=== PATIENT | female | born 1955 | race Caucasian/White ===

== ENCOUNTER 2024-01-01 07:00 | Day surgery (SDC) | payer OTHER ==
[2023-12-31 12:06] LABS: Absolute Basophils 0.1 K/uL (0-0.5); Absolute Eosinophils 0.1 K/uL (0-0.5); Absolute Monocytes 1.3 K/uL (0.1-1.3); Basophils % 0.9 % (0-1.3); Eosinophils % 0.7 % (0-4.4); Hematocrit 37.9 % (36.0-45.0); Hemoglobin 12.7 g/dL (12.0-15.0); Lymphocytes % 17.4 % (15.3-44.8); MCH 30.5 pg (27.0-35.0); MCHC 33.5 g/dL (32.0-36.0); MCV 91.1 fL (80-100); MPV 6.7 fL (7.6-11.3); Monocytes % 11.4 % (3.3-12.3); Neutrophils % 69.6 % (41.7-73.7); Platelets 618 thou/uL (152-406); RBC Red Blood Cell Count 4.16 M/uL (3.86-4.86); Red Cell Distribution Width 13.4 % (12.1-15.2)
[2023-12-31 12:21] LABS: Anion Gap 12.8 mEq/L (5.0-15.0); Potassium 3.8 mEq/L (3.5-5.1)
--- NOTE | 2023-12-31 12:54 | RAD REPORT ---
EXAMINATION: ONE VIEW CHEST XR CLINICAL INDICATION: pre-op TECHNIQUE: Frontal chest projection is submitted. Examination is limited by patient positioning and t echnique. COMPARISON: No prior exam. FINDINGS: The lungs are well inflated and clear. The heart is upper limit of normal in size. No displaced fract ures identified. IMPRESSION: No acute intrathoracic abnormalities.
[2024-01-01] MEDS: Ringers Lactate 1,000 ML IV ONE (07:40)
[2024-01-01] MEDS ORDERED: NS 0.9% VIAL 20 ML ONE (08:16)
[2024-01-01] MEDS ORDERED: LIDOCAINE 1% 20 ML MDV ONE (08:16)
[2024-01-01] MEDS ORDERED: FENTANYL CITR 100 MCG/2 ML ONE (08:36)
[2024-01-01] MEDS ORDERED: MIDAZOLAM HCL 2 MG/2 ML INJ ONE (08:36)
[2024-01-01] MEDS ORDERED: LIDOCAINE 2% MPF 5 ML VIAL ONE (08:36)
[2024-01-01] MEDS ORDERED: ONDANSETRON 4 MG/2 ML VIAL ONE (08:36)
[2024-01-01] MEDS ORDERED: propofoL 200 MG/20 ML VIAL IV ONE (08:36)
[2024-01-01] MEDS: CEFAZOLIN SODIUM 2 GM/VIAL ONE (08:46)
[2024-01-01] MEDS ORDERED: EPHEDRINE SULF 50 MG/ML VIAL ONE (09:05)
[2024-01-01] MEDS: HEPARIN 5000 UNIT/ML 1 ML VIAL ONE (09:20)
--- NOTE | 2024-01-01 09:53 | P.OP ---
Date of Service: 01/01/24 Preop diagnosis: Anal cancer Postop diagnosis: Same Procedure performed: Placement of right IJ Port-A-Cath device, utilization of ultrasound and fluoroscopy Surgeon: Isidro Gonzales MD [employer] Worker: None Estimated blood loss: Minimal Specimen: None Findings: Normal anatomy Anesthesia: General Complications: None Drains: None Fluids and blood products: None applicable Disposition: Recovery room Operative note: Patient brought to the OR and placed in supine position. General anesthesia began. Patient prepped and draped in usual sterile fashion. Lidocaine 1% very locally. Ultrasound device utilized to isolate the right internal jugular vein. 18-gauge needle used to access the right IJ vein. Guidewire passed and position confirmed with fluoroscopy. 3 cm counterincision made on the right anterior chest. A pocket created. Bleeding controlled cautery. Tunneling device used to tunnel the catheter between the 2 wounds. Seldinger technique used. Tip of the catheter placed at the SVC right atrial junction. Catheter cut to appropriate size and attached to the Port-A-Cath device. Port-A-Cath device attached to subcutaneous tissue with 3-0 Vicryl. The Port-A-Cath flushed with heparin and packed with heparin with good blood flow. 3-0 chromic used to approximate subcutaneous tissue and close skin. Sterile dressing applied. Patient awakened and taken to recovery room in good general condition. Chest x-ray has been ordered. CC: Dr. Muñoz's office
[2024-01-01] MEDS ORDERED: HYDROCODONE/APAP 7.5/325 MG TAB PO PRN (09:54)
--- NOTE | 2024-01-01 10:24 | RAD REPORT ---
EXAM: Fluoroscopy use, Fluoroscopy <1 Hour HISTORY: PORT A CATH PLACEMENT COMPARISON: None FINDINGS: Multiple images were sent to PACS, during a fluoroscopically guided procedure. No radiologi st was involved in protocoling or performance of the study, and no radiologist was present for the duration of the procedure. No interpretation of the saved images will be provided. Total fluoroscopy time: 0.3 minutes. IMPRESSION: Documentation of fluoroscopy use as above.
--- NOTE | 2024-01-01 10:27 | RAD REPORT ---
EXAMINATION: ONE VIEW CHEST XR CLINICAL INDICATION: Status post Port-A-Cath placement TECHNIQUE: Frontal chest projection is submitted. Examination is limited by patient positioning and t echnique. COMPARISON: 12/31/2023 FINDINGS: Right-sided venous catheters tip in SVC. No postprocedural pneumothorax. Mild interstitial pulmonary edema suspected. The heart is upper limit of normal in size. No displaced fractures identified. IMPRESSION: No postprocedure pneumothorax.
[2024-01-01 11:17] VITALS: BP 111/66; O2SAT 96
[2024-01-01 11:29] VITALS: TEMP 98.5
--- NOTE | 2024-01-05 13:10 | EKG ---
Test Date: 2023-12-31 Test Time: 11:41:19 Complaint Inspector: WILVER MEASUREMENT RESULTS: Intervals: Rate: 93 SC: 152 QRSD: 120 QT: 392 QTc: 487 [place]: P: 84 SC: 152 QRS: 54 T: 87 INTERPRETIVE STATEMENTS: Normal sinus rhythm Biatrial enlargement Incomplete left bundle branch block Abnormal ECG Compared to ECG 11/05/2013 23:02:36 Atrial abnormality now present Electronically Signed On 01-05-24 12:56:27 CDT by Horacio Minor
== END 2024-01-01 11:18 | disposition home or self-care (01) ==
LOC: OR 07:00
PROVIDERS: ATTEND Surgery
PROC: 0JH60WZ Insertion of Totally Implantable Vascular Access Device into Chest Subcutaneous Tissue and Fascia, Open Approach (ICD-10-PCS; principal; 2024-01-01 08:45)
DX: C21.0 Malignant neoplasm of anus, unspecified (principal)
CPT/HCPCS: 93005; 85025; 80048; 36415; 84295; 71045 ×2; 36561; J1644 ×2; A4216; J2704; J2001 ×2; J2250; J3010; J2405; J7120; C1788; 76000

== ENCOUNTER 2024-02-15 14:22 | Emergency (ER) | payer OTHER ==
[2024-02-15] MEDS ORDERED: NA CHLORIDE 0.9% 2,000 ML ONE (14:45)
[2024-02-15] MEDS ORDERED: ETOMIDATE 20 MG/10 ML VIAL IV ONE (14:55)
[2024-02-15] MEDS ORDERED: KETAMINE HCL IN 0.9 % NACL 50 MG/5 ML SYRINGE IV ONE (15:08)
[2024-02-15] MEDS ORDERED: dilTIAZem HCL 25 MG/5 ML VIAL IV ONE ×2 (15:09→15:18)
[2024-02-15] MEDS ORDERED: NA CHLORIDE 0.9% 100 ML ONE (15:27)
[2024-02-15] MEDS ORDERED: AMIODARONE HCL 150 MG/3 ML INJ IV ONE (15:27)
[2024-02-15] MEDS ORDERED: AMIODARONE IN DEXTROSE,ISO-OSM 0 MG/0 ML BAG IV ONE (15:27)
[2024-02-15] MEDS ORDERED: DILTIAZEM INJ 125 MG/25 ML 125 MG in NA CHLORIDE 0.9% 100 ML IV SCH (15:30)
[2024-02-15 16:11] LABS: PT Prothrombin Time 17.6 SECONDS (9.4-12.5); Protime INR 1.59
[2024-02-15 16:14] LABS: Absolute Lymphocytes (CBC) 0.1 K/uL (0.7-4.9); Absolute Neutrophil 2.4 K/uL (1.8-8.0); Basophils % 0.6 % (0-1.3); Eosinophils % 1.2 % (0-4.4); Hematocrit 26.6 % (36.0-45.0); MCH 31.7 pg (27.0-35.0); MCHC 33.8 g/dL (32.0-36.0); MCV 93.9 fL (80-100); MPV 8.5 fL (7.6-11.3); Monocytes % 0.7 % (3.3-12.3); Neutrophils % 95.5 % (41.7-73.7); Nucleated Red Blood Cells % 0.7 % (0-0); Platelets 90 thou/uL (152-406); RBC Red Blood Cell Count 2.83 M/uL (3.86-4.86); Red Cell Distribution Width 16.2 % (12.1-15.2)
[2024-02-15 16:28] LABS: Anion Gap 17.4 mEq/L (5.0-15.0); Potassium 3.4 mEq/L (3.5-5.1); Troponin High Sensitivity 22.7 pg/mL (<58.9)
[2024-02-15] MEDS ORDERED: ASPIRIN 81 MG CHEWABLE TABLET ONE (16:30)
[2024-02-15] MEDS ORDERED: CEFTRIAXONE 1000 MG/VIAL ONE (16:30)
[2024-02-15] MEDS ORDERED: NA CHLORIDE 0.9% 500 ML ONE (16:30)
[2024-02-15 16:31] LABS: SARS-CoV-2 Antigen CONTROL BLUE LINE VIS/BG OK; SARS-CoV-2 Antigen Rapid Res Negative (Negative)
--- NOTE | 2024-02-15 16:51 | RAD REPORT ---
EXAMINATION: ONE VIEW CHEST XR CLINICAL INDICATION: Female, 68 years old.,DYSPNEA TECHNIQUE: Frontal chest projection is submitted. Examination is limited by patient positioning and t echnique. COMPARISON: 01/01/2024 FINDINGS: The lungs are well inflated and clear. Right chest wall Port-A-Cath unchanged in position. No pneumot horax or sizable effusion. The heart is normal in size. Mediastinal contours are unremarkable. IMPRESSION: No acute intrathoracic abnormalities.
[2024-02-15] MEDS ORDERED: POTASSIUM CL SA 10 MEQ TAB PO ONE (16:56)
[2024-02-15] MEDS ORDERED: KCL 20 MEQ/100 mL IVPB 100 ML IV ONE (16:56)
[2024-02-15] MEDS ORDERED: NA CHLORIDE 0.9% 1,000 ML ONE (16:56)
[2024-02-15] MEDS ORDERED: AMIODARONE HCL 900 MG in Dextrose 5%-Water 482 ML IV SCH (17:00)
[2024-02-15 17:25] LABS: Band Neutrophils 37 % (0-1); Differential Total Cells Count 100; Segmented Neutrophils 43 % (40-80)
[2024-02-15 17:26] LABS: Atypical Lymphocytes 1 %; Lymphocytes 6 % (15-42); Metamyelocytes 3 % (0-0); Monocytes 10 % (0-10)
[2024-02-15 17:30] LABS: Blood Morphology Comment NOTED (NOT SEEN); Dohle Bodies PRESENT; Platelet Estimate DECR; Platelets Clumped FEW; Polychromasia SLIGHT; Toxic Granulation PRESENT
--- NOTE | 2024-02-15 18:04 | EDPHYS ---
Physician Documentation [facility] Name: Dary Woodard Age: 68 yrs Sex: Female : 1955 Arrival Date: 02/15/2024 Time: 14:22 Bed 14 Private MD: ED Physician Angel Marquez HPI: 02/14 16:16 This 68 yrs old Female presents to ER via EMS with complaints of Shortness Of ec2 Breath. 16:16 Patient arrives today for reported shortness of breath as well as concern for A-fib. ec2 EMS reports that the patient was noted to have heart rates in the 150s to 170s with hypotensive blood pressures. Patient with history of colorectal cancer, receiving chemotherapy, has a port in the right chest in place. Patient reports some shortness of breath, reports she been having cough and congestion along with nausea, vomiting, diarrhea ongoing for the past several days.. Historical: - Allergies: 14:22 No Known Allergies; kc6 - PMHx: 14:22 Hypertensive disorder; Gastroesophageal reflux disease; colorectal cancer; kc6 - Immunization history:: Adult Immunizations up to date. - Infectious Disease History:: Denies. - Social history:: Smoking status: Patient reports the use of cigarette tobacco products, smokes one pack cigarettes per day. ROS: 16:16 Constitutional: as per hpi ec2 Exam: 16:16 Constitutional: GEN: NAD Head: atraumatic Eyes: EOMI Ears: External ears are ec2 normal. CV: Tachycardia with irregular rhythm. LUNGS: Scattered wheezes noted throughout all lung olivares. ABD: non-distended SKIN: no evidence of rashes MSK: no evidence of trauma Vital Signs: 14:22 Weight 78.93 kg (M); Height 5 ft. 4 in. (R); kc6 14:42 BP 82 / 54; Pulse 147; Resp 21 S; Pulse Ox 91% on 2 lpm NC; kc6 14:55 BP 81 / 55; Pulse 137; Resp 22 S; Pulse Ox 100% on Non-rebreather mask; iw 14:58 BP 89 / 55; Pulse 140; iw 15:00 BP 91 / 80; Pulse 147; iw 15:14 BP 118 / 69; Pulse 135; Resp 28; iw 15:20 BP 81 / 58; Pulse 109; Resp 22 S; Pulse Ox 98% on 3 lpm NC; kc6 15:25 BP 76 / 66; Pulse 111; kc6 15:30 BP 79 / 68; Pulse 117; kc6 15:35 BP 87 / 60; Pulse 117; kc6 15:40 BP 86 / 70; Pulse 120; Resp 23 S; Pulse Ox 97% on 3 lpm NC; kc6 15:42 BP 89 / 71; Pulse 111; kc6 16:04 BP 98 / 66; Pulse 106; Resp 19 S; Temp 98.5(O); Pulse Ox 100% on Non-rebreather mask; kc6 16:16 BP 89 / 63; Pulse 118; Resp 22 S; Pulse Ox 96% on 3 lpm NC; kc6 16:30 BP 97 / 65; Pulse 120; Resp 25 S; Pulse Ox 94% on 3 lpm NC; kc6 16:50 BP 91 / 65; Pulse 123; Resp 25 S; Pulse Ox 94% on 3 lpm NC; kc6 17:10 BP 97 / 78; Pulse 112; Resp 22 S; Pulse Ox 95% on 3 lpm NC; kc6 17:30 BP 114 / 99; Pulse 113; Resp 25 S; Pulse Ox 97% on 3 lpm NC; kc6 18:00 BP 91 / 63; Pulse 115; Resp 24 S; Pulse Ox 96% on 3 lpm NC; kc6 18:16 BP 101 / 71; Pulse 110; Resp 24 S; Pulse Ox 96% on 3 lpm NC; kc6 18:30 BP 105 / 74; Pulse 109; Resp 21 S; Pulse Ox 95% on 3 lpm NC; kc6 19:05 BP 99 / 65; Pulse 107; Resp 23; Temp 98.5; Pulse Ox 97% on 3 lpm NC; Pain 8/10; bm8 20:41 BP 95 / 57; Pulse 110; Resp 20; Temp 98.5; Pulse Ox 96% on 3 lpm NC; Pain 3/10; bm8 21:20 BP 89 / 67; Pulse 115; Resp 21; Temp 98.5; Pulse Ox 95% on 3 lpm NC; Pain 3/10; bm8 14:22 Body Mass Index 29.87 (78.93 kg, 162.56 cm) kc6 19:05 Pain Scale: Adult bm8 20:41 Pain Scale: Adult bm8 21:20 Pain Scale: Adult bm8 [place] Coma Score: 19:05 Eye Response: spontaneous(4). Motor Response: obeys commands(6). Verbal Response: bm8 oriented(5). Total: 15. 20:41 Eye Response: spontaneous(4). Motor Response: obeys commands(6). Verbal Response: bm8 oriented(5). Total: 15. 21:20 Eye Response: spontaneous(4). Motor Response: obeys commands(6). Verbal Response: bm8 oriented(5). Total: 15. Procedures: 18:29 Cardioversion: (synchronized) for treatment of A fib, with 200 joules X 1. Post ec2 procedure rhythm is unchanged, the patient tolerated the procedure well. MDM: 14:23 Medical Screening Exam initiated ec2 16:16 Data reviewed: vital signs, nurses notes. ED course: Patient arrives today for ec2 shortness of breath. Examination yields an unstable individual with hypotension along with A-fib with RVR with rates in the 140s to 160s. Given the concerning findings I decided to emergently cardiovert the patient given the low blood pressures. I gave the patient etomidate along with a 200 J shock, subsequently patient with slowed rates in the 120s to 140s along with improved blood pressures. After continued monitoring, patient persistent with A-fib with RVR with rates persistence in the 120s to 130s, I given the patient 25 mg of diltiazem as well with some improvement in heart rates to the 100-1 20s. Ultimately patient is an unstable individual requiring multiple forms of cardioversion including electric and chemical. Pending lab work, chest x-ray. Differential includes electrolyte disturbances, arrhythmia, anemia.. 16:40 ED course: Metabolic profile shows significant renal dysfunction with a creatinine of ec2 4.73, electrolyte disturbances with potassium of 3.4. CBC shows anemia with hemoglobin of 9. BNP elevated at 3500. Troponin within normal ranges. Flu negative, COVID-negative.. 16:54 ED course: Patient with recurrence of rates in the 120s to 130s, will give the patient ec2 amiodarone, start the patient on amiodarone drip. Patient with blood pressures in the 90s to low 100s.. 18:59 ED course: Due to ICU capability, will transfer for ICU cares.. ec2 20:38 ED course: I discussed case with route rider who agrees to accept the patient for ec2 transfer.. 12 14:24 Order name: Basic Metabolic Panel; Complete Time: 16:39 ec2 02/14 14:24 Order name: CBC with Diff; Complete Time: 17:36 ec2 02/14 14:24 Order name: NT PRO-BNP; Complete Time: 16:39 ec2 02/14 14:24 Order name: PT-INR; Complete Time: 16:15 ec2 02/14 14:24 Order name: Troponin HS; Complete Time: 16:39 ec2 02/14 14:25 Order name: Blood Culture Adult (2) ec2 02/14 14:25 Order name: Lactate w/ 2H reflex if indic.; Complete Time: 16:28 ec2 02/14 14:33 Order name: Influenza Screen (a \T\ B); Complete Time: 16:39 ec2 02/14 14:33 Order name: SARS RAPID; Complete Time: 16:39 ec2 02/14 17:27 Order name: Manual Differential; Complete Time: 17:36 EDMS 02/14 14:24 Order name: XRAY Chest (1 view); Complete Time: 16:51 ec2 02/14 14:24 Order name: EKG; Complete Time: 14:24 ec2 02/14 14:24 Order name: Cardiac monitoring; Complete Time: 14:43 ec2 02/14 14:24 Order name: EKG - Nurse/Tech; Complete Time: 15:20 ec2 02/14 14:24 Order name: IV Saline Lock; Complete Time: 15:20 ec2 02/14 14:24 Order name: Labs collected and sent; Complete Time: 16:02 ec2 02/14 14:24 Order name: O2 Per Protocol; Complete Time: 14:42 ec2 02/14 14:24 Order name: O2 Sat Monitoring; Complete Time: 14:42 ec2 02/14 14:25 Order name: Accucheck; Complete Time: 16:02 ec2 02/14 14:25 Order name: IV Saline Lock - Large Bore; Complete Time: 14:42 ec2 02/14 14:25 Order name: Vital Signs; Complete Time: 15:20 ec2 02/14 15:56 Order name: EKG - Nurse/Tech; Complete Time: 16:02 ec2 Administered Medications: 14:30 Drug: NS 0.9% IV 1000 ml IV at 1000 ml once; to be given as a bolus over 60 minutes kc Route: IV; Rate: 1000 ml; Site: right antecubital; 15:30 Follow up: Response: No adverse reaction; IV Status: Completed infusion; IV Intake: kc6 1000ml 14:30 Drug: NS 0.9% IV 1000 ml IV at 1 bolus Per protocol; to be given as a bolus over 60 kc6 minutes Route: IV; Rate: 1 bolus; Site: right antecubital; 15:30 Follow up: Response: No adverse reaction; IV Status: Completed infusion; IV Intake: kc6 1000ml 15:00 Drug: Etomidate IVP 20 mg IVP once Route: IVP; Site: right antecubital; [facility] 15:15 Follow up: Response: No adverse reaction; RASS: Light sedation (-2) [facility] 15:14 Drug: Diltiazem IVP 25 mg IVP once; Over 2 Minutes Route: IVP; Site: right antecubital; [facility] 15:25 Follow up: Response: No adverse reaction; Cardiac rhythm is unchanged [facility] 16:48 Drug: Aspirin PO Chewable Tablet 324 mg PO once; 81 mg tablets x 4 Route: PO; kc6 17:48 Follow up: Response: No adverse reaction [facility] 16:48 Drug: NS 0.9% IV 500 ml 500 ml IV at 1 bolus once; to be given as a bolus over 30 kc6 minutes Volume: 500 ml; Route: IV; Rate: 1 bolus; Site: right antecubital; 17:48 Follow up: Response: No adverse reaction; IV Status: Completed infusion; IV Intake: kc6 500ml 16:51 Drug: Rocephin IV 1 grams IV at calculated rate once; Given slow IV push per pharmacy 6 instructions Route: IV; Rate: calculated rate; Site: right antecubital; 17:51 Follow up: Response: No adverse reaction; IV Status: Completed infusion; IV Intake: [id number] 17:12 Drug: Potassium Chloride IV 20 mEq IV at calculated rate once; administer over 1-2 kc6 hours Route: IV; Rate: calculated rate; Site: Port-a-cath; 19:50 Follow up: Response: No adverse reaction; IV Status: Completed infusion; IV Intake: bm8 100ml 17:12 Drug: Potassium Chloride PO 40 mEq PO once Route: PO; kc6 19:08 Follow up: Response: Nausea is increased; Vomiting increased kc6 17:12 Drug: amiodarone IVP 150 mg IVP once Route: IVP; Site: right antecubital; kc6 17:18 Follow up: Response: No adverse reaction kc6 17:27 Drug: amiodarone IVPB 900 mg, D5W IV 500 ml IVPB at 1 mg/min continuous; for 6 hrs, kc6 then change to 0.5 mg/min Route: IVPB; Rate: 1 mg/min; Site: right antecubital; 21:41 Follow up: Response: No adverse reaction; IV Status: Infusion continued upon transfer bm8 18:47 Drug: Magnesium Sulfate IVPB 2 grams IVPB once over 2 hrs Route: IVPB; Infused Over: 2 kc6 hrs; Site: Port-a-cath; 19:50 Follow up: Response: No adverse reaction; IV Status: Completed infusion; IV Intake: bm8 100ml 19:50 Drug: fentaNYL (PF) IVP 25 mcg IVP once Route: IVP; Site: right antecubital; bm8 20:42 Follow up: Response: No adverse reaction bm8 21:20 Drug: Ondansetron IVP 4 mg IVP once; over 2 minutes Route: IVP; Site: right antecubital;bm8 21:41 Follow up: Response: No adverse reaction bm8 Disposition: 18:02 Critical Care:. ec2 Disposition Summary: 02/15/24 19:00 Transfer Ordered Notes: Transfer Location: [facility] ec2 Reason: Higher level of care ec2 Condition: Stable(02/15/24 19:00) ec2 Problem: new(02/15/24 19:00) ec2 Symptoms: have improved(02/15/24 19:00) ec2 Accepting Physician: transferring doc(02/15/24 21:57) bm8 Diagnosis - Afib w/ RVR ec2 - Pancytopenia ec2 - Acute Renal Failure ec2 - Hypokalemia ec2 Forms: - Medication Reconciliation Form ec2 - SBAR form ec2 Critical care time excluding procedures: 18:02 Critical care time: Bedside Care: 70 minutes, Consultation: 5 minutes, Family ec2 Intervention: 10 minutes. Total time: 85 minutes Signatures: Dispatcher [employer] EDMS Tae Farias MD MD sp3 Quiana Carlton, RN RN kc6 Angel Marquez MD MD ec2 Delta Hebert, RN RN bm8 Corrections: (The following items were deleted from the chart) 14:24 14:24 BASIC METABOLIC PANEL+C.LAB.BRZ ordered. EDMS EDMS 14:24 14:24 CBC+H.LAB.BRZ ordered. EDMS EDMS 14:24 14:24 PROBNP+C.LAB.BRZ ordered. EDMS EDMS 14:24 14:24 PROTIME (+INR)+COAG.LAB.BRZ ordered. EDMS EDMS 14:24 14:24 Troponin High Sensitivity+C.LAB.BRZ ordered. EDMS EDMS 18:15 18:03 Telemetry/MedSurg (Inpatient) ec2 ec2 18:15 18:03 ec2 ec2 19:00 18:03 Inpatient Admission ec2 ec2 19:00 18:03 Ziggy Heard ec2 ec2 19:00 18:03 Fair ec2 ec2 19:00 18:03 new ec2 ec2 19:00 18:03 have improved ec2 ec2 19:00 18:03 Standard ec2 ec2 19:00 18:03 Afib w/ RVR ec2 ec2 19:00 18:03 Pancytopenia ec2 ec2 19:00 18:03 Acute Renal Failure ec2 ec2 19:00 18:15 Intensive Care Unit ec2 ec2 19:00 18:15 ec2 ec2 19:07 19:00 transferring doc ec2 ec2 21:57 19:07 transferring doc ec2 bm8
--- NOTE | 2024-02-15 18:04 | ER ---
Nurse's Notes [facility] Name: Dary Woodard Age: 68 yrs Sex: Female : 1955 Arrival Date: 02/15/2024 Time: 14:22 Bed 14 Private MD: Diagnosis: Afib w/ RVR;Pancytopenia;Acute Renal Failure;Hypokalemia Presentation: 02/14 14:22 Chief complaint: EMS states: they were toned out for n/v/d x5 days. pt reports kc6 currently being treated for colorectal cancer. upon EMS arrival pt was hypotensive and in afib RVR. pt denies CP but reports SOB. 14:22 Coronavirus screen: At this time, the client does not indicate any symptoms associated kc6 with coronavirus-19. Ebola Screen: No symptoms or risks identified at this time. Initial Sepsis Screen: Does the patient meet any 2 criteria? RR > 20 per min. Systolic BP < 90 mmHg. Mean Arterial Pressure (MAP) < 65. HR > 90 bpm. Does the patient have a suspected source of infection? No. Patient's initial sepsis screen is negative. Risk Assessment: Do you want to hurt yourself or someone else? Patient reports no desire to harm self or others. Onset of symptoms was February 15, 2024. 14:22 Method Of Arrival: EMS: [facility] 14:22 Acuity: LYDIA 2 [facility] 14:22 Care prior to arrival: Medication(s) given: Normal saline infusion, 500 mL, IV kc6 initiated. 20 GA, in the right antecubital area. Triage Assessment: 14:22 General: Appears distressed, uncomfortable, well groomed, well developed, Behavior is kc6 calm, cooperative, appropriate for age. Pain: Complains of pain in buttocks. EENT: No signs and/or symptoms were reported regarding the EENT system. Neuro: Level of Consciousness is awake, alert, obeys commands, Oriented to person, place, time, situation, Appropriate for age. Cardiovascular: Denies chest pain, Rhythm is atrial fibrillation with rapid ventricular response. Respiratory: Reports shortness of breath at rest on exertion Airway is patent Trachea midline Respiratory effort is even, labored, Respiratory pattern is symmetrical, tachypnea Breath sounds with wheezes bilaterally. Onset: The symptoms/episode began/occurred at an unknown time. the patient has moderate shortness of breath. GI: Abdomen is round non-distended, Reports diarrhea, intolerance of fluids, intolerance of food, nausea, vomiting, Patient currently denies abdominal pain. : No signs and/or symptoms were reported regarding the genitourinary system. Derm: No signs and/or symptoms reported regarding the dermatologic system. Skin is healthy with good turgor, Skin is dry, Skin is pale, Skin temperature is warm. Musculoskeletal: No signs and/or symptoms reported regarding the musculoskeletal system. Circulation, motion, and sensation intact. Capillary refill < 3 seconds, Range of motion: intact in all extremities. Historical: - Allergies: 14:22 No Known Allergies; kc6 - PMHx: 14:22 Hypertensive disorder; Gastroesophageal reflux disease; colorectal cancer; kc6 - Immunization history:: Adult Immunizations up to date. - Infectious Disease History:: Denies. - Social history:: Smoking status: Patient reports the use of cigarette tobacco products, smokes one pack cigarettes per day. Screenin:22 [facility] ED Fall Risk Assessment (Adult) History of falling in the last 3 months, kc6 including since admission No falls in past 3 months (0 pts) Confusion or Disorientation No (0 pts) Intoxicated or Sedated No (0 pts) Impaired Gait No (0 pts) Mobility Assist Device Used No (0 pt) Altered Elimination No (0 pt) Score/Fall Risk Level 0 - 2 = Low Risk Oriented to surroundings, Maintained a safe environment. Abuse screen: Denies threats or abuse. Denies injuries from another. Nutritional screening: No deficits noted. Tuberculosis screening: No symptoms or risk factors identified. Assessment: 14:22 Reassessment: please see triage assessment. [facility] 14:55 Reassessment: set up for synchronized cardioversion, BP 88/51, HR 130's to 140's Afib iw RVR, Dr. Marquez at bedside , crash cart at bedside, suction set up. 15:09 Reassessment: cardiac rhythm unchanged after cardioversion, new orders given, Dr. samson Marquez remains at bedside. 15:22 Reassessment: Patient appears in no apparent distress at this time. No changes from [facility] previously documented assessment. Patient and/or family updated on plan of care and expected duration. Pain level reassessed. Patient is alert, oriented x 3, equal unlabored respirations, skin warm/dry/pink. 16:22 Reassessment: Patient appears in no apparent distress at this time. No changes from kc6 previously documented assessment. Patient and/or family updated on plan of care and expected duration. Pain level reassessed. Patient is alert, oriented x 3, equal unlabored respirations, skin warm/dry/pink. 17:22 Reassessment: Patient appears in no apparent distress at this time. No changes from kc6 previously documented assessment. Patient and/or family updated on plan of care and expected duration. Pain level reassessed. Patient is alert, oriented x 3, equal unlabored respirations, skin warm/dry/pink. 18:22 Reassessment: Patient appears in no apparent distress at this time. No changes from kc6 previously documented assessment. Patient and/or family updated on plan of care and expected duration. Pain level reassessed. Patient is alert, oriented x 3, equal unlabored respirations, skin warm/dry/pink. 19:05 Reassessment: Patient appears in no apparent distress at this time. Patient and/or bm8 family updated on plan of care and expected duration. Pain level reassessed. Patient is alert, oriented x 3, equal unlabored respirations, skin warm/dry/pink. General: Appears in no apparent distress. uncomfortable, Behavior is calm, cooperative, appropriate for age. Pain: Complains of pain in buttocks Pain currently is 8 out of 10 on a pain scale. Neuro: No deficits noted. Level of Consciousness is awake, alert, obeys commands, Oriented to person, place, time, situation, Appropriate for age. 19:05 Cardiovascular: Denies chest pain, Heart tones S1 S2 present Capillary refill < 3 bm8 seconds in bilateral fingers Patient's skin is warm and dry. Rhythm is atrial fibrillation. Respiratory: Airway is patent Respiratory effort is even, unlabored, Respiratory pattern is regular, symmetrical, Breath sounds are clear bilaterally. GI: No signs and/or symptoms were reported involving the gastrointestinal system. : No signs and/or symptoms were reported regarding the genitourinary system. EENT: No signs and/or symptoms were reported regarding the EENT system. Derm: scabbed over coccyx area, several small wounds. Musculoskeletal: No signs and/or symptoms reported regarding the musculoskeletal system. 20:41 Reassessment: Patient appears in no apparent distress at this time. Patient and/or bm8 family updated on plan of care and expected duration. Pain level reassessed. Patient is alert, oriented x 3, equal unlabored respirations, skin warm/dry/pink. pain reduced to 3/10, family at bedside, awaiting transfer Patient states feeling better. 21:06 Reassessment: report given to BRITT Camacho at [facility]. bm8 21:20 Reassessment: Patient appears in no apparent distress at this time. No changes from bm8 previously documented assessment. Patient and/or family updated on plan of care and expected duration. Pain level reassessed. Patient is alert, oriented x 3, equal unlabored respirations, skin warm/dry/pink. Vital Signs: 14:22 Weight 78.93 kg (M); Height 5 ft. 4 in. (R); kc6 14:42 BP 82 / 54; Pulse 147; Resp 21 S; Pulse Ox 91% on 2 lpm NC; kc6 14:55 BP 81 / 55; Pulse 137; Resp 22 S; Pulse Ox 100% on Non-rebreather mask; iw 14:58 BP 89 / 55; Pulse 140; iw 15:00 BP 91 / 80; Pulse 147; iw 15:14 BP 118 / 69; Pulse 135; Resp 28; iw 15:20 BP 81 / 58; Pulse 109; Resp 22 S; Pulse Ox 98% on 3 lpm NC; kc6 15:25 BP 76 / 66; Pulse 111; kc6 15:30 BP 79 / 68; Pulse 117; kc6 15:35 BP 87 / 60; Pulse 117; kc6 15:40 BP 86 / 70; Pulse 120; Resp 23 S; Pulse Ox 97% on 3 lpm NC; kc6 15:42 BP 89 / 71; Pulse 111; kc6 16:04 BP 98 / 66; Pulse 106; Resp 19 S; Temp 98.5(O); Pulse Ox 100% on Non-rebreather mask; kc6 16:16 BP 89 / 63; Pulse 118; Resp 22 S; Pulse Ox 96% on 3 lpm NC; kc6 16:30 BP 97 / 65; Pulse 120; Resp 25 S; Pulse Ox 94% on 3 lpm NC; kc6 16:50 BP 91 / 65; Pulse 123; Resp 25 S; Pulse Ox 94% on 3 lpm NC; kc6 17:10 BP 97 / 78; Pulse 112; Resp 22 S; Pulse Ox 95% on 3 lpm NC; kc6 17:30 BP 114 / 99; Pulse 113; Resp 25 S; Pulse Ox 97% on 3 lpm NC; kc6 18:00 BP 91 / 63; Pulse 115; Resp 24 S; Pulse Ox 96% on 3 lpm NC; kc6 18:16 BP 101 / 71; Pulse 110; Resp 24 S; Pulse Ox 96% on 3 lpm NC; kc6 18:30 BP 105 / 74; Pulse 109; Resp 21 S; Pulse Ox 95% on 3 lpm NC; kc6 19:05 BP 99 / 65; Pulse 107; Resp 23; Temp 98.5; Pulse Ox 97% on 3 lpm NC; Pain 8/10; bm8 20:41 BP 95 / 57; Pulse 110; Resp 20; Temp 98.5; Pulse Ox 96% on 3 lpm NC; Pain 3/10; bm8 21:20 BP 89 / 67; Pulse 115; Resp 21; Temp 98.5; Pulse Ox 95% on 3 lpm NC; Pain 3/10; bm8 14:22 Body Mass Index 29.87 (78.93 kg, 162.56 cm) kc6 19:05 Pain Scale: Adult bm8 20:41 Pain Scale: Adult bm8 21:20 Pain Scale: Adult bm8 Vitals: 19:05 Cardiac Rhythm Assessment Atrial fibrillation. bm8 Sasha Coma Score: 19:05 Eye Response: spontaneous(4). Motor Response: obeys commands(6). Verbal Response: bm8 oriented(5). Total: 15. 20:41 Eye Response: spontaneous(4). Motor Response: obeys commands(6). Verbal Response: bm8 oriented(5). Total: 15. 21:20 Eye Response: spontaneous(4). Motor Response: obeys commands(6). Verbal Response: bm8 oriented(5). Total: 15. ED Course: 14:22 Maintain EMS IV. Dressing intact. Good blood return noted. Site clean \T\ dry. Gauge \T\ jose rafael 6 site: 20G RAC. Flushed with 10 mL NS. 14:22 Oxygen administration via nasal cannula \T\ 3L/min. kc6 14:22 Arm band placed on. kc6 14:22 Patient has correct armband on for positive identification. Placed in gown. Bed in low kc6 position. Call light in reach. Side rails up X2. Adult w/ patient. nuclear monitoring technician on. Pulse ox on. NIBP on. Door closed. Noise minimized. Lights dimmed. Warm blanket given. Pillow given. 14:22 One-on-one care X 120 minutes. kc6 14:23 Patient arrived in ED. ec2 14:23 Angel Marquez MD is Attending Physician. ec2 14:42 Quiana Carlton RN is Primary Nurse. kc6 15:00 Provided Education on: synchronized cardioversion. kc6 15:05 Assist provider with cardioversion (synchronized) for treatment of A fib with 200 iw joules X 1. Set up for procedure. Performed by Angel Marquez MD Monitored with court monitor, pulse ox, Post procedure rhythm is unchanged. Patient tolerated well. 15:31 Triage completed. kc6 15:36 XRAY Chest (1 view) In Process Unspecified. EDMS 16:03 Accessed Port-a-Cath. using accessed w/ # 20 Rodríguez needle, ,sterile technique, per [address] protocol. Clean \T\ dry. Dressing intact. No blood return. Flushes easily. 17:45 Assisted to bedside commode. [facility] 18:03 Ziggy Heard MD is Hospitalizing Provider. ec2 19:00 Report given to BRITT Sorenson. kc6 19:12 Attempted to initiate transfer with [facility]. No answer. rv1 19:28 Initiated transfer with Stephenie at [facility]. rv1 21:40 Patient transferred, IV remains in place. bm8 Administered Medications: 14:30 Drug: NS 0.9% IV 1000 ml IV at 1000 ml once; to be given as a bolus over 60 minutes kc6 Route: IV; Rate: 1000 ml; Site: right antecubital; 15:30 Follow up: Response: No adverse reaction; IV Status: Completed infusion; IV Intake: kc6 1000ml 14:30 Drug: NS 0.9% IV 1000 ml IV at 1 bolus Per protocol; to be given as a bolus over 60 kc6 minutes Route: IV; Rate: 1 bolus; Site: right antecubital; 15:30 Follow up: Response: No adverse reaction; IV Status: Completed infusion; IV Intake: kc6 1000ml 15:00 Drug: Etomidate IVP 20 mg IVP once Route: IVP; Site: right antecubital; kc6 15:15 Follow up: Response: No adverse reaction; RASS: Light sedation (-2) kc6 15:14 Drug: Diltiazem IVP 25 mg IVP once; Over 2 Minutes Route: IVP; Site: right antecubital; kc6 15:25 Follow up: Response: No adverse reaction; Cardiac rhythm is unchanged kc6 16:48 Drug: Aspirin PO Chewable Tablet 324 mg PO once; 81 mg tablets x 4 Route: PO; kc6 17:48 Follow up: Response: No adverse reaction kc6 16:48 Drug: NS 0.9% IV 500 ml 500 ml IV at 1 bolus once; to be given as a bolus over 30 kc6 minutes Volume: 500 ml; Route: IV; Rate: 1 bolus; Site: right antecubital; 17:48 Follow up: Response: No adverse reaction; IV Status: Completed infusion; IV Intake: kc6 500ml 16:51 Drug: Rocephin IV 1 grams IV at calculated rate once; Given slow IV push per pharmacy kc6 instructions Route: IV; Rate: calculated rate; Site: right antecubital; 17:51 Follow up: Response: No adverse reaction; IV Status: Completed infusion; IV Intake: [id number] 17:12 Drug: Potassium Chloride IV 20 mEq IV at calculated rate once; administer over 1-2 kc6 hours Route: IV; Rate: calculated rate; Site: Port-a-cath; 19:50 Follow up: Response: No adverse reaction; IV Status: Completed infusion; IV Intake: bm8 100ml 17:12 Drug: Potassium Chloride PO 40 mEq PO once Route: PO; kc6 19:08 Follow up: Response: Nausea is increased; Vomiting increased kc6 17:12 Drug: amiodarone IVP 150 mg IVP once Route: IVP; Site: right antecubital; kc6 17:18 Follow up: Response: No adverse reaction 6 17:27 Drug: amiodarone IVPB 900 mg, D5W IV 500 ml IVPB at 1 mg/min continuous; for 6 hrs, kc6 then change to 0.5 mg/min Route: IVPB; Rate: 1 mg/min; Site: right antecubital; 21:41 Follow up: Response: No adverse reaction; IV Status: Infusion continued upon transfer bm8 18:47 Drug: Magnesium Sulfate IVPB 2 grams IVPB once over 2 hrs Route: IVPB; Infused Over: 2 kc6 hrs; Site: Port-a-cath; 19:50 Follow up: Response: No adverse reaction; IV Status: Completed infusion; IV Intake: bm8 100ml 19:50 Drug: fentaNYL (PF) IVP 25 mcg IVP once Route: IVP; Site: right antecubital; bm8 20:42 Follow up: Response: No adverse reaction bm8 21:20 Drug: Ondansetron IVP 4 mg IVP once; over 2 minutes Route: IVP; Site: right antecubital;bm8 21:41 Follow up: Response: No adverse reaction bm8 Medication: 19:05 VIS not applicable for this client. bm8 Intake: 15:30 IV: 1000ml; Total: 1000ml. kc6 15:30 IV: 1000ml; Total: 2000ml. kc6 17:48 IV: 500ml; Total: 2500ml. kc6 17:51 IV: 10ml; Total: 2510ml. kc6 19:50 IV: 100ml; Total: 2610ml. bm8 19:50 IV: 100ml; Total: 2710ml. bm8 Outcome: 18:03 Decision to Hospitalize by Provider. ec2 19:00 ER care complete, transfer ordered by . ec2 21:40 Transferred by ground EMS to [facility], Transfer form completed. bm8 X-rays sent w/ patient. 21:40 Condition: stable 21:40 Instructed on the need for transfer, Demonstrated understanding of instructions, follow-up care, medications, 21:57 Patient left the ED. bm8 Signatures: Dispatcher [employer] Gemini Townsend RN RN iw Quiana Carlton RN RN kc6 Alondra Marquez rvAngel Davison MD MD ec2 Delta Hebert RN RN bm8 Corrections: (The following items were deleted from the chart) 15:10 14:55 Reassessment: set up for synchronized cardioversion, BP 88/51, HR 130's to 140's iw Afib RVRDr. Marquez at bedside iw 15:13 14:55 BP 81 / 55; Pulse 137bpm; iw iw 19: 14:22 Oxygen administration via nasal cannula \T\ 4L/min kc6 kc6 19: 14:22 Care prior to arrival: IV initiated. 20 GA, in the right antecubital area, kc6 kc6
[2024-02-15] MEDS ORDERED: Magnesium Sulfate 2gm IVPB 2 G/50 ML BAG IV ONE (18:39)
[2024-02-15] MEDS ORDERED: FENTANYL CITR 100 MCG/2 ML ONE (19:43)
[2024-02-15] MEDS ORDERED: ONDANSETRON 4 MG/2 ML VIAL ONE (21:16)
[2024-02-16 00:45] VITALS: TEMP 98.5
[2024-02-16 01:00] VITALS: BP 89/67; O2SAT 95
== END 2024-02-15 21:57 | disposition short-term general hospital (02) ==
LOC: ER 14:22
DX: I48.91 Unspecified atrial fibrillation (principal); D61.818 Other pancytopenia; E87.6 Hypokalemia; N17.9 Acute kidney failure, unspecified; C18.9 Malignant neoplasm of colon, unspecified; I10 Essential (primary) hypertension; F17.210 Nicotine dependence, cigarettes, uncomplicated; Z11.52 Encounter for screening for COVID-19
CPT/HCPCS: 92960; 93005; 87040 ×2; 85025; 80048; 36415; 87205 ×2; 85610; 83605; 84484; 83880; 87804 ×2; 71045; 99291; 99292; 87811; J3480; J3475; J0282; J3010; J2405; J7040; J7030 ×2; J0696; 87077; 87186; J7060

== ENCOUNTER 2024-06-27 08:43 | Day surgery (SDC) | payer OTHER ==
[2024-06-27 09:11] LABS: Absolute Basophils 0.1 K/uL (0-0.5); Absolute Eosinophils 0.2 K/uL (0-0.5); Absolute Monocytes 0.8 K/uL (0.1-1.3); Absolute Neutrophil 3.9 K/uL (1.8-8.0); Basophils % 0.9 % (0-1.3); Eosinophils % 3.1 % (0-4.4); Hematocrit 33.8 % (36.0-45.0); Hemoglobin 11.5 g/dL (12.0-15.0); Lymphocytes % 16.4 % (15.3-44.8); MCH 32.5 pg (27.0-35.0); MCHC 33.9 g/dL (32.0-36.0); MCV 95.8 fL (80-100); MPV 6.9 fL (7.6-11.3); Monocytes % 13.6 % (3.3-12.3); Platelets 386 thou/uL (152-406); RBC Red Blood Cell Count 3.53 M/uL (3.86-4.86); Red Cell Distribution Width 15.3 % (12.1-15.2)
[2024-06-27 09:14] LABS: PTT, Activated Partial Thromb 29.6 SECONDS (27.2-37.4); Protime INR 0.96
[2024-06-27 09:15] LABS: Anion Gap 8.3 mEq/L (5.0-15.0); Potassium 4.3 mEq/L (3.5-5.1)
[2024-06-27] MEDS: Ringers Lactate 1,000 ML IV ONE (09:30)
[2024-06-27] MEDS ORDERED: LIDOCAINE 1% MPF 5 ML VIAL ONE (09:35)
[2024-06-27] MEDS ORDERED: propofoL 200 MG/20 ML VIAL IV ONE (09:35)
[2024-06-27] MEDS ORDERED: MIDAZOLAM HCL 2 MG/2 ML INJ ONE (09:36)
[2024-06-27] MEDS ORDERED: FENTANYL CITR 100 MCG/2 ML ONE (09:36)
--- NOTE | 2024-06-27 10:46 | EKG ---
Test Date: 2024-06-27 Test Time: 08:18:45 Business Manager: MIRELLA MEASUREMENT RESULTS: Intervals: Rate: 68 CA: 164 QRSD: 128 QT: 454 QTc: 482 Hodges: P: 61 CA: 164 QRS: 9 T: 88 INTERPRETIVE STATEMENTS: Normal sinus rhythm Left bundle branch block Abnormal ECG Compared to ECG 02/15/2024 15:12:09 Left bundle-branch block now present Atrial fibrillation no longer present T-wave abnormality no longer present Possible ischemia no longer present Electronically Signed On 06-27-24 10:45:55 CDT by Horacio Minor
[2024-06-27] MEDS ORDERED: ONDANSETRON 4 MG/2 ML VIAL ONE (10:49)
[2024-06-27] MEDS: CEFAZOLIN SODIUM 2 GM/VIAL ONE (11:05)
[2024-06-27] MEDS: BUPIVACAINE 0.5% PF 10 ML VIAL ONE (11:12)
[2024-06-27] MEDS ORDERED: Mastisol Adhesive Liq ONE (11:20)
[2024-06-27] MEDS ORDERED: GLYCOPYRROLATE 0.2 MG/ML SYR ONE (11:22)
--- NOTE | 2024-06-27 11:34 | P.OP ---
Date of Service: 06/27/24 Preop diagnosis: Anal cancer, status post Port-A-Cath placement Postop diagnosis: Same Procedure performed: Removal right chest Port-A-Cath Surgeon: Isidro Gonzales MD Manager Competitive Intelligence: None Estimated blood loss: Minimal Specimen: Port-A-Cath device for identification Findings: As above Anesthesia: General Complications: None Drains: None Fluids and blood products: Nonapplicable Disposition: Recovery room Operative note: Patient brought to the OR and placed in supine position. General anesthesia began. Patient prepped and draped in the usual sterile fashion. Marcaine 0.5% obtained locally. 15 blade used to make a 3 cm incision over the previous insertion site. Subcutaneous tissue divided. Bleeding controlled cautery. Port-A-Cath device identified and freed from the surrounding tissue with sharp and blunt dissection. Port-A-Cath device removed and sent to pathology for identification. Wound irrigated and bleeding controlled cautery. 3-0 chromic used to approximate subcutaneous tissue and close skin. Sterile dressing applied. Patient awakened and taken to recovery room in good general condition. CC: Dr. Muñoz's office
[2024-06-27] MEDS ORDERED: HYDROCODONE/APAP 7.5/325 MG TAB PO PRN (11:36)
[2024-06-27 13:40] VITALS: BP 132/63; TEMP 98; O2SAT 98
== END 2024-06-27 12:53 | disposition home or self-care (01) ==
LOC: OR 08:43
PROVIDERS: ATTEND Surgery
PROC: 0JPT0WZ Removal of Totally Implantable Vascular Access Device from Trunk Subcutaneous Tissue and Fascia, Open Approach (ICD-10-PCS; principal; 2024-06-27 11:00)
DX: C20 Malignant neoplasm of rectum (principal); I10 Essential (primary) hypertension; K21.9 Gastro-esophageal reflux disease without esophagitis; E66.9 Obesity, unspecified; Z45.2 Encounter for adjustment and management of vascular access device
CPT/HCPCS: 93005; 85025; 80048; 36415; 85610; 88300; 85730; 36590; J2704; J2003; J2250; J3010; J2405; J7120

== ENCOUNTER 2024-12-16 15:58 | Emergency (ER) | payer OTHER ==
[2024-12-16] MEDS ORDERED: FUROSEMIDE 100 MG/10 ML VIAL IV ONE (16:22)
[2024-12-16] MEDS ORDERED: FUROSEMIDE 40 MG TABLET ONE (16:24)
[2024-12-16] MEDS ORDERED: FUROSEMIDE 20 MG TABLET ONE (16:24)
--- NOTE | 2024-12-16 16:31 | ER ---
Nurse's Notes [facility] Name: Dary Woodard Age: 69 yrs Sex: Female : 1955 Arrival Date: 12/16/2024 Time: 15:58 Bed 7 Private MD: Diagnosis: Malignant ascites, colorectal cancer Presentation: 12/16 16:11 Chief complaint: Patient states: SHE IS ONLY HERE FOR FLUID TO BE DRAINED FROM THE dd2 STOMACH PER HER CANCER MD. Coronavirus screen: At this time, the client does not indicate any symptoms associated with coronavirus-19. Ebola Screen: No symptoms or risks identified at this time. Initial Sepsis Screen: Does the patient meet any 2 criteria? No. Patient's initial sepsis screen is negative. Does the patient have a suspected source of infection? No. Patient's initial sepsis screen is negative. Risk Assessment: Do you want to hurt yourself or someone else? Patient reports no desire to harm self or others. Onset of symptoms is unknown. 16:11 Method Of Arrival: Wheelchair dd2 16:11 Acuity: LYDIA 3 dd2 Triage Assessment: 16:14 General: Appears in no apparent distress. uncomfortable, Behavior is calm, cooperative, dd2 appropriate for age. Pain: Complains of pain in abdomen. GI: Abdomen is round distended, Reports FLUID IN ABD. Historical: - Allergies: 16:14 No Known Allergies; dd2 - PMHx: 16:14 colorectal cancer; Gastroesophageal reflux disease; Hypertensive disorder; dd2 - PSHx: 16:14 Colostomy; dd2 - Immunization history:: Adult Immunizations unknown. - Infectious Disease History:: Denies. - Social history:: Smoking status: Patient denies any tobacco usage or history of. Screenin:46 [facility] ED Fall Risk Assessment (Adult) History of falling in the last 3 months, jl7 including since admission No falls in past 3 months (0 pts) Confusion or Disorientation No (0 pts) Intoxicated or Sedated No (0 pts) Impaired Gait Yes (1 pt) Mobility Assist Device Used Yes (1 pt) Altered Elimination No (0 pt) Score/Fall Risk Level 0 - 2 = Low Risk Oriented to surroundings, Maintained a safe environment. Abuse screen: Denies threats or abuse. Denies injuries from another. Nutritional screening: No deficits noted. Tuberculosis screening: No symptoms or risk factors identified. Assessment: 16:46 Reassessment: Attempted to insert IV and draw labs, pt reported pain and requested not jl7 to have labs drawn. ERP notified and changed order to 60 mg Lasix PO. Pt medicated as ordered and instructed to return to ED if symptoms worsen before Thursday when she is to have a paracentesis. Vital Signs: 16:11 BP 169 / 73; Pulse 84; Resp 17; Temp 99.5; Pulse Ox 98% on R/A; Weight 89.5 kg; dd2 ED Course: 16:01 Patient arrived in ED. mr 16:04 Tae Farias MD is Attending Physician. sp3 16:07 Ciaran Garduno RN is Primary Nurse. jl7 16:14 Triage completed. dd2 16:14 Arm band placed on right wrist. dd2 16:46 Patient has correct armband on for positive identification. Provided Education on: jl7 discharge. 16:46 No provider procedures requiring assistance completed. Patient did not have IV access jl7 during this emergency room visit. Administered Medications: 16:24 Not Given (Patient Refused): [id number] mg IVP once; give over 2 minutes sp3 16:31 CANCELLED (error): [id number] mg IVP once; give over 2 minutes sp3 16:32 Drug: Furosemide PO 60 mg PO once Route: PO; jl7 16:50 Follow up: Response: Medication administered at discharge. jl7 Medication: 16:46 VIS not applicable for this client. jl7 Outcome: 16:31 Discharge ordered by . sp3 16:46 Discharged to home ambulatory, jl7 16:46 Condition: stable 16:46 Discharge instructions given to patient, family, Instructed on discharge instructions, follow up and referral plans. Demonstrated understanding of instructions, follow-up care, 16:50 Patient left the ED. jl7 Signatures: Melody Marquez, Reg Reg mr Ciaran Garduno, RN RN jl7 Tae Farias MD MD sp3 MAGNO CARRILLO RN RN dd2
--- NOTE | 2024-12-16 16:31 | EDPHYS ---
Physician Documentation [facility] Name: Dary Woodard Age: 69 yrs Sex: Female : 1955 Arrival Date: 12/16/2024 Time: 15:58 Bed 7 Private MD: ED Physician Tae Farias HPI: 12/16 16:28 This 69 yrs old Female presents to ER via Wheelchair with complaints of Abdominal sp3 Swelling. 16:28 69-year-old female with colorectal cancer and ascites currently transitioning to sp3 hospice care under the care of of Dr. Muñoz presents to the ED via private vehicle for evaluation for ascites drainage paracentesis. Patient was supposed to come earlier but her gave her a sleeping pill and she was unable to get here. Unfortunately interventional radiology has already left for the day. Patient has no other symptoms. ROS otherwise negative.. Historical: - Allergies: 16:14 No Known Allergies; dd2 - PMHx: 16:14 colorectal cancer; Gastroesophageal reflux disease; Hypertensive disorder; dd2 - PSHx: 16:14 Colostomy; dd2 - Immunization history:: Adult Immunizations unknown. - Infectious Disease History:: Denies. - Social history:: Smoking status: Patient denies any tobacco usage or history of. ROS: 16:29 Constitutional: Negative for fever, chills, and weight loss, Eyes: Negative for injury, sp3 pain, redness, and discharge, ENT: Negative for injury, pain, and discharge, Neck: Negative for injury, pain, and swelling, Cardiovascular: Negative for chest pain, palpitations, and edema, Respiratory: Negative for shortness of breath, cough, wheezing, and pleuritic chest pain, MS/Extremity: Negative for injury and deformity, Skin: Negative for injury, rash, and discoloration, Neuro: Negative for headache, weakness, numbness, tingling, and seizure, Psych: Negative for depression, anxiety, suicide ideation, homicidal ideation, and hallucinations, Allergy/Immunology: Negative for hives, rash, and allergies, Endocrine: Negative for neck swelling, polydipsia, polyuria, polyphagia, and marked weight changes, 16:29 All other systems are negative, Exam: 16:29 Constitutional: This is a well developed, well nourished patient who is awake, alert, sp3 and in no acute distress. Head/Face: Normocephalic, atraumatic. Chest/axilla: Normal chest wall appearance and motion. Nontender with no deformity. No lesions are appreciated. Cardiovascular: Regular rate and rhythm with a normal S1 and S2. No gallops, murmurs, or rubs. Normal PMI, no JVD. No pulse deficits. Respiratory: Lungs have equal breath sounds bilaterally, clear to auscultation and percussion. No rales, rhonchi or wheezes noted. No increased work of breathing, no retractions or nasal flaring. Back: No spinal tenderness. No costovertebral tenderness. Full range of motion. Skin: Warm, dry with normal turgor. Normal color with no rashes, no lesions, and no evidence of cellulitis. 16:29 Abdomen/GI: Distended abdomen with fluid/ascites noted. Vital signs are normal., Vital Signs: 16:11 BP 169 / 73; Pulse 84; Resp 17; Temp 99.5; Pulse Ox 98% on R/A; Weight 89.5 kg; dd2 MDM: 16:05 Medical Screening Exam initiated sp3 16:30 Data reviewed: vital signs, nurses notes, old medical records. ED course: I discussed sp3 the case with Dr. Muñoz who stated to give Lasix to bridge until we can get it drained on Thursday. I explained all of this to the patient and family. They understand. She refused IV Lasix and blood work therefore we will give Lasix p.o. and discharge patient home. They are to return on Thursday or get a schedule directly with IR through their care team.. 12/16 16:15 Order name: IV Saline Lock; Complete Time: 16:20 sp3 12/16 16:15 Order name: Labs collected and sent; Complete Time: 16:20 sp3 Administered Medications: 16:24 Not Given (Patient Refused): [id number] mg IVP once; give over 2 minutes sp3 16:31 CANCELLED (error): [id number] mg IVP once; give over 2 minutes sp3 16:32 Drug: Furosemide PO 60 mg PO once Route: PO; jl7 16:50 Follow up: Response: Medication administered at discharge. jl7 Disposition Summary: 12/16/24 16:31 Discharge Ordered Notes: Location: Home sp3 Condition: Stable sp3 Diagnosis - Malignant ascites, colorectal cancer sp3 Followup: sp3 - With: Private Physician - When: Upon discharge from the Emergency Department - Reason: Continuance of care Discharge Instructions: - Discharge Summary Sheet sp3 - Ascites sp3 Forms: - Medication Reconciliation Form sp3 - Antibiotic Education sp3 - Prescription Opioid Use sp3 - Patient Portal Instructions sp3 - Leadership Thank You Letter sp3 Signatures: Dispatcher [employer] Ciaran Beaver RN RN jl7 Tae Farias MD MD sp3 MAGNO CARRILLO RN RN dd2 Corrections: (The following items were deleted from the chart) 16:31 16:27 Furosemide IVP 60 mg IVP once; give over 2 minutes ordered. sp3 sp3
[2024-12-16 17:02] VITALS: BP 169/73; TEMP 99.5; O2SAT 98
== END 2024-12-16 16:50 | disposition home or self-care (01) ==
LOC: ER 15:58
DX: C18.9 Malignant neoplasm of colon, unspecified (principal); R18.0 Malignant ascites
CPT/HCPCS: 99283; J1938

== ENCOUNTER 2024-12-19 12:03 | Emergency (ER) | payer OTHER ==
--- NOTE | 2024-12-19 13:06 | RAD REPORT ---
EXAMINATION: Limited ABDOMINAL ULTRASOUND CLINICAL INDICATION: Female, 69 years, assess for ascites TECHNIQUE: Limited Grayscale ultrasonography of the abdomen was performed to evaluate for ascites. RP 0013. COMPARISON: CT 11/25/2024 FINDINGS: Overall, there is mild ascites. The largest pocket is present in the right lower quadrant. Mild perih epatic ascites is seen.. IMPRESSION: Mild ascites present. Largest pocket is in the right lower quadrant.
--- NOTE | 2024-12-19 13:29 | ER ---
Nurse's Notes [facility] Name: Dary Woodard Age: 69 yrs Sex: Female : 1955 Arrival Date: 12/19/2024 Time: 12:03 Bed 15 Private MD: Diagnosis: Abdominal pain, Generalized Presentation: 12/19 12:11 Chief complaint: Patient states: abdominal pain with SOB. 2 weeks ago patient was me1 jaundice and rec'd stents to pancreas and liver. Recent told the cancer had spread to the liver. Came Thursday for a paracentesis but radiologist was gone so they came back today for paracentesis. Coronavirus screen: At this time, the client does not indicate any symptoms associated with coronavirus-19. Ebola Screen: No symptoms or risks identified at this time. Initial Sepsis Screen: Does the patient meet any 2 criteria? HR > 90 bpm. Does the patient have a suspected source of infection? No. Patient's initial sepsis screen is negative. Risk Assessment: Do you want to hurt yourself or someone else? Patient reports no desire to harm self or others. Onset of symptoms is unknown. 12:11 Method Of Arrival: Wheelchair me1 12:11 Acuity: LYDIA 3 me1 Triage Assessment: 12:17 General: Appears uncomfortable, Behavior is calm, cooperative, appropriate for age, me1 Reports abdominal pain and SOB. Pain: Complains of pain in back and abdomen Pain does not radiate. Pain currently is 9 out of 10 on a pain scale. Quality of pain is described as aching, pressure, Pain began gradually, Is continuous. EENT: No signs and/or symptoms were reported regarding the EENT system. Neuro: Level of Consciousness is awake, alert, obeys commands, Oriented to person, place, time, situation, Appropriate for age. Cardiovascular: Patient's skin is warm and dry. Respiratory: Reports shortness of breath at rest on exertion Airway is patent Respiratory effort is even, labored, Respiratory pattern is regular, tachypnea. GI: Abdomen is noted to have ascites, Reports lower abdominal pain, upper abdominal pain. : No signs and/or symptoms were reported regarding the genitourinary system. Derm: Skin is intact, is healthy with good turgor, Skin is jaundiced. Musculoskeletal: Circulation, motion, and sensation intact. Range of motion: intact in all extremities, generalized weakness. 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 - Infectious Disease History:: Denies. - Social history:: Smoking status: Patient denies any tobacco usage or history of. Screenin:02 [facility] ED Fall Risk Assessment (Adult) History of falling in the last 3 months, kj2 including since admission No falls in past 3 months (0 pts) Confusion or Disorientation No (0 pts) Intoxicated or Sedated No (0 pts) Impaired Gait No (0 pts) Mobility Assist Device Used No (0 pt) Altered Elimination No (0 pt) Score/Fall Risk Level 0 - 2 = Low Risk Oriented to surroundings, Hourly rounding (assess needs \T\ fall precautionary measures) done. Abuse screen: Denies threats or abuse. Denies injuries from another. Nutritional screening: No deficits noted. Tuberculosis screening: No symptoms or risk factors identified. Assessment: 12:20 General: Appears in no apparent distress. Behavior is calm, cooperative. Neuro: Level kj2 of Consciousness is awake, alert, obeys commands, Oriented to person, place, time, situation. Cardiovascular: Patient's skin is warm and dry. Respiratory: Airway is patent Respiratory effort is even, unlabored. : No signs and/or symptoms were reported regarding the genitourinary system. 12:20 GI: Bowel sounds present X 4 quads. Abd is non tender. kj2 13:09 Reassessment: Patient appears in no apparent distress at this time. Patient is alert, kj2 oriented x 3, equal unlabored respirations, skin warm/dry/pink. 13:32 Reassessment: Patient appears in no apparent distress at this time. Patient and/or kj2 family updated on plan of care and expected duration. Pain level reassessed. Patient is alert, oriented x 3, equal unlabored respirations, skin warm/dry/pink. Vital Signs: 12:11 BP 82 / 57; Pulse 96; Resp 22; Temp 98.4; Pulse Ox 93% ; Weight 89.36 kg; Height 5 ft. me1 4 in. ; Pain 9/10; 13:08 BP 90 / 62; Pulse 83; Resp 20; Pulse Ox 95% on R/A; kj2 13:33 BP 91 / 64; Pulse 80; Resp 20; Temp 98.2; Pulse Ox 95% on R/A; kj2 12:11 Body Mass Index 33.81 (89.36 kg, 162.56 cm) me1 12:11 Pain Scale: Adult me1 ED Course: 12:05 Patient arrived in ED. al6 12:06 [facility]ff[facility] Hammer [facility]C [facility] kb 12:06 Tae Farias MD is Attending Physician. kb 12:17 Triage completed. me1 12:17 Arm band placed on Patient placed in an exam room. me1 12:20 Patient has correct armband on for positive identification. Bed in low position. Call kj2 light in reach. Adult w/ patient. Provided Education on: call light. 12:52 US Abdomen Limited In Process Unspecified. EDMS 12:59 Yulissa Jimenez, RN is Primary Nurse. kj2 13:33 No provider procedures requiring assistance completed. Patient did not have IV access kj2 during this emergency room visit. Administered Medications: No medications were administered Medication: 13:09 VIS not applicable for this client. kj2 Outcome: 13:28 Discharge ordered by MD. kb 13:34 Discharged to home kj2 13:34 Condition: stable 13:34 Discharge instructions given to patient, Instructed on discharge instructions, follow up and referral plans. Demonstrated understanding of instructions, follow-up care, 13:39 Patient left the ED. kj2 Signatures: Dispatcher [employer] EDIA Steffi Hammer FNP-C FNP-Ckb Eddleman, Michelle RN RN me1 Yulissa Jimenez, BRITT RN kj2 Yuridia Damico al6
--- NOTE | 2024-12-19 13:29 | EDPHYS ---
Physician Documentation [facility] Name: Dary Woodard Age: 69 yrs Sex: Female : 1955 Arrival Date: 12/19/2024 Time: 12:03 Bed 15 Private MD: ED Physician Tae Farias HPI: 12/19 13:21 This 69 yrs old Female presents to ER via Wheelchair with complaints of Abdominal Pain. kb 13:21 Pt is a 69 year old female who presents for paracentesis. States she is transitioning kb to hospice care for metastatic cancer and Dr Muñoz recommended she come for a therapeutic paracentesis. Pt came on Thursday, but missed the radiologist so was told to come back today. . 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 - Infectious Disease History:: Denies. - Social history:: Smoking status: Patient denies any tobacco usage or history of. ROS: 12:12 Constitutional: As per HPI kb Exam: 13:20 Constitutional: This is a well developed, well nourished patient who is awake, alert, kb and in no acute distress. Head/Face: Normocephalic, atraumatic. ENT: Moist Mucous membranes Cardiovascular: Regular rate Respiratory: Respirations even and unlabored. No increased work of breathing. Talking in full sentences Skin: Warm, dry with normal turgor. Normal color. MS/ Extremity: Pulses equal, no cyanosis. Neurovascular intact. Full, normal range of motion. Neuro: Awake and alert, GCS 15, oriented to person, place, time, and situation. 13:20 Abdomen/GI: Inspection: abdomen appears normal, Bowel sounds: normal, Palpation: soft, in all quadrants, mild abdominal tenderness, in all quadrants, Vital Signs: 12:11 BP 82 / 57; Pulse 96; Resp 22; Temp 98.4; Pulse Ox 93% ; Weight 89.36 kg; Height 5 ft. me1 4 in. ; Pain 9/10; 13:08 BP 90 / 62; Pulse 83; Resp 20; Pulse Ox 95% on R/A; kj2 13:33 BP 91 / 64; Pulse 80; Resp 20; Temp 98.2; Pulse Ox 95% on R/A; kj2 12:11 Body Mass Index 33.81 (89.36 kg, 162.56 cm) me1 12:11 Pain Scale: Adult me1 MDM: 12:06 Medical Screening Exam initiated kb 12:12 Data reviewed: vital signs, nurses notes. kb 13:22 Differential diagnosis: non-specific abd pain, cancer, ascites. Consideration of kb Admission/Observation Escalation of care including admission/observation considered. admission considered but pt does not want any treatment, needle sticks at this time. Discussed case with Dr Muñoz who will get with palliative care team, pt and family to move forward. Management of patient was discussed with the following: Personal Financial Counselor: Dr Muñoz. Discussion of test interpretation with radiology: I had a discussion with radiology regarding a test interpretation. Discussed US with Dr Montero. Not enough ascites seen for paracentesis to be beneficial. Test considered but Not performed: Labs: cbc, cmp and chest xray considered but pt does not want any needle sticks or other treatment. STates she just came for the paracentesis and is going on hospice. . Historians other than the Patient: Family Member: family. Counseling: I had a detailed discussion with the patient and/or guardian regarding the historical points, exam findings, and any diagnostic results supporting the discharge/admit diagnosis, radiology results, the need for outpatient follow up, oncology, hospice. ED course: Pt and family report pt has had a low blood pressure for a while now and recently stopped HTN medication due to systolic bp in the 90s. States her care team is aware of hypotension and she does not want any treatment for that at this time. 12/19 12:13 Order name: US Abdomen Limited; Complete Time: 13:07 kb Administered Medications: No medications were administered Disposition Summary: 12/19/24 13:28 Discharge Ordered Notes: Location: Home kb Condition: Stable kb Diagnosis - Abdominal pain, Generalized kb Followup: kb - With: Emergency Department - When: As needed - Reason: Worsening of condition Followup: kb - With: Private Physician - When: 2 - 3 days - Reason: Recheck today's complaints, Continuance of care, Re-evaluation by your physician Discharge Instructions: - Discharge Summary Sheet kb - Abdominal Pain, Adult, [id number] kb Forms: - Medication Reconciliation Form kb - Antibiotic Education kb - Prescription Opioid Use kb - Patient Portal Instructions kb - Leadership Thank You Letter kb Signatures: Dispatcher [employer] Steffi Ni FNP-Delfina Blanco, RN RN me1
[2024-12-19 13:59] VITALS: O2SAT 95
[2024-12-19 14:01] VITALS: BP 91/64; TEMP 98.2
== END 2024-12-19 13:39 | disposition home or self-care (01) ==
LOC: ER 12:03
DX: R10.9 Unspecified abdominal pain (principal); C18.9 Malignant neoplasm of colon, unspecified; C78.7 Secondary malignant neoplasm of liver and intrahepatic bile duct
CPT/HCPCS: 76705; 99283